=== PATIENT | male | born 2000 | race Caucasian/White ===

== ENCOUNTER 2019-01-03 04:35 | Day surgery (SDC) | payer OTHER ==
[~2019-01-03] VITALS: Ht 177.8 cm; Wt 86.4 kg
[2019-01-03 05:42] LABS: BASO % 0.3 % (0.0-1.0); EOS # 0.4 10^3/uL (0.0-0.50); EOS % 3.2 % (0.0-3.0); HEMATOCRIT 49.2 % (42.0-52.0); HEMOGLOBIN 16.4 g/dl (13.5-17.5); LYMPH % 17.6 % (24.0-44.0); MEAN CORPUSCULAR HGB CONC 33.3 g/dl (32.0-36.5); MEAN CORPUSCULAR VOLUME 89.9 fl (80.0-96.0); MONO # 0.8 10^3/uL (0.0-0.8); MONO % 6.9 % (0.0-5.0); NEUTROPHILS # 8.3 10^3/uL (1.8-7.7); NEUTROPHILS % 71.6 % (36.0-66.0); PLATELET COUNT, AUTOMATED 313 10^3/uL (150-450); RED BLOOD COUNT 5.47 10^6/uL (4.30-6.10); WHITE BLOOD COUNT 11.6 10^3/uL (4.0-10.0)
[2019-01-03 05:47] LABS: APPEARANCE, URINE CLEAR (CLEAR); BACTERIA, URINE AUTO NEGATIVE (NEGATIVE); BILIRUBIN, URINE AUTO NEGATIVE (NEGATIVE); BLOOD, URINE BLOOD NEGATIVE (NEGATIVE); COLOR, URINE YELLOW (YELLOW); GLUCOSE, URINE (UA) AUTO NEGATIVE (NEGATIVE); KETONE, URINE AUTO NEGATIVE (NEGATIVE); LEUKOCYTE ESTERASE, URINE AUTO NEGATIVE (NEGATIVE); MUCUS, URINE SMALL (NEGATIVE); NITRITE, URINE AUTO NEGATIVE (NEGATIVE); PROTEIN, URINE AUTO NEGATIVE (NEGATIVE); RBC, URINE AUTO 4 /HPF (0-3); SPECIFIC GRAVITY URINE AUTO 1.024 (1.002-1.035); SQUAMOUS EPITHELIAL CELL UR AU 0 /HPF (0-6); UROBILINOGEN, URINE AUTO 0.2 mg/dL (0.0-2.0); WBC, URINE AUTO 1 /HPF (0-3)
[2019-01-03] MEDS: GASTROGRAFIN SOLUTION 30ML PO SCH ×2 (05:58→06:06)
[2019-01-03 06:11] LABS: ALBUMIN 4.2 GM/DL (3.2-5.2); ALT/SGPT 17 U/L (12-78); BILIRUBIN,DIRECT 0.2 MG/DL (0.0-0.2); BILIRUBIN,TOTAL 0.8 MG/DL (0.2-1.0); BLOOD UREA NITROGEN 12 MG/DL (7-18); CALCIUM LEVEL 8.9 MG/DL (8.5-10.1); CARBON DIOXIDE LEVEL 28 MEQ/L (21-32); CHLORIDE LEVEL 107 MEQ/L (98-107); CREATININE FOR GFR 0.96 MG/DL (0.70-1.30); GLUCOSE, FASTING 90 MG/DL (70-100); LIPASE 94 U/L (73-393); POTASSIUM SERUM 4.3 MEQ/L (3.5-5.1); SODIUM LEVEL 141 MEQ/L (136-145); TOTAL PROTEIN 8.1 GM/DL (6.4-8.2)
[2019-01-03] MEDS ORDERED: NS 1,000 ML IV SCH (08:00)
[2019-01-03] MEDS ORDERED: PIPERACILLIN/TAZOBACTAM SOD 3.375 GM in D5W MINI-BAG PLUS 50 ML IV ONE (08:00)
--- NOTE | 2019-01-03 08:03 | REP ---
Clinical: Right lower quadrant pain. Technique: Axial noncontrast images from the lung bases to the pubic symphysis with coronal and sagittal re-formations. Findings: The retrocecal appendix is fluid-filled and dilated to 13 mm with appendicolith and surrounding periappendiceal inflammatory changes as well as adjacent reactive adenopathy. Findings are consistent with acute appendicitis. No associated bowel obstruction or free air to suggest perforation. No drainable collection or abscess. Remainder of the small large bowel is grossly unremarkable. Liver, spleen, pancreas, bilateral adrenal glands and kidneys are normal. The patient is status post cholecystectomy. Pelvis demonstrates normal bladder and age appropriate prostate/seminal vesicles. No ascites. No free air. Abdominal aorta without aneurysm. Musculoskeletal structures are intact. Impression: Findings consistent with acute appendicitis as described above. Electronically Signed by Terrance Davidson MD 01/03/2019 07:54 A
[2019-01-03] MEDS ORDERED: NICO21DI34 TD (08:12)
[2019-01-03] MEDS ORDERED: VITMTA PO (08:12)
[2019-01-03] MEDS ORDERED: ONDANSETRON 4MG/2ML VIAL (J2405) IV ONE (11:30)
[2019-01-03] MEDS ORDERED: MORPHINE 4 MG/ML 1ML VIAL/SYRINGE (J2270) IV PRN ×2 (11:30→15:45)
--- NOTE | 2019-01-03 13:04 | HPEPDOC ---
General Surgery H&P Date of Admission Jan 03, 2019 Attending Physician: JAYDEN POST MD History and Physical CHIEF COMPLAINT: Abdominal pain HISTORY OF PRESENT ILLNESS: Patient presented himself to the emergency room roughly about 3 AM early this morning. He reports he has been having some vague crampy abdominal pain yesterday morning that he attributed to possible constipation, gas pain. As the day progressed this progressed to be sharp though he was not having being any nausea vomiting or fever that time. About 1 AM in the morning he woke up with excruciating right-sided abdominal pain. He had a bout of nausea prior to that and vomiting. He denies diarrhea fevers or chills. This prompted him to go to the emergency room. In the ER he was evaluated with a CT scan of abdomen and pelvis was noted to have pain from an inflamed retrocecal appendix. ALLERGIES: Please see below. HOME MEDICATIONS: Please see below. PAST MEDICAL HISTORY: 1. Denies any chronic medical problems PAST SURGICAL HISTORY: 1. Laparoscopic cholecystectomy PERSONAL/SOCIAL HISTORY: Patient used to smoke 3/4 packs of cigarettes a day and chews tobacco. He tells me he stopped 2 days ago and is on a nicotine patch. Reports occasional alcohol intake. Denies any recreational drug use. REVIEW OF SYSTEMS: GENERAL: Denies chills, fatigue, fever, weight gain and weight loss. HEENT: Denies blurred vision and double vision. Denies ear symptoms. Denies hoarseness. NECK: Denies any neck pain. CARDIOVASCULAR: Denies chest pain and palpitations. MUSCULOSKELETAL: Denies arthralgias, back pain and thrombophlebitis. SKIN: Denies rash. NEUROLOGIC: Denies headache, stroke and transient ischemic attack. PSYCHIATRIC: Denies anxiety and depression. ENDOCRINE: Denies thyroid disease. HEMATOLOGY/ONCOLOGY: Denies any bleeding or clotting disorder. HEART: Denies any chest pains, palpitations, paroxysmal dyspnea, orthopnea. PULMONARY: Denies chronic cough, dyspnea and wheezing. GASTROINTESTINAL: Denies rectal bleeding, family history of colon cancer, constipation, diarrhea, dysphagia, heartburn and jaundice. GENITOURINARY: Denies dysuria, frequency, hematuria and nocturia. ENDOCRINE: Denies polydipsia, polyphagia, polyuria, heat or cold intolerance. INFECTIOUS: Denies any recent upper respiratory tract infection, UTI, need for use of antibiotics. NUTRITION: Reports good appetite. PHYSICAL EXAMINATION: VITAL SIGNS: Please see below. GENERAL APPEARANCE: Patient seen at bedside, appears comfortable. Awake, alert, oriented. HEENT: Normocephalic, atraumatic. [place] palpebral conjunctivae. Anicteric sclerae. Lips moist. CHEST: No chest wall abnormalities. Normal respiratory motion/effort. NECK: Supple. No thyromegaly. No lymphadenopathies. LUNGS: Lung sounds are clear to auscultation bilaterally. No wheezing appreci ated. HEART: No chest wall abnormalities. Heart rate and rhythm are regular with no murmurs. ABDOMEN: [Abdomen is mildly obese, soft, nondistended. Mild tenderness over the right lower quadrant area without any guarding. SKIN: Warm, moist. EXTREMITIES: Extremities have no deformities. No edema identified. NEUROLOGICAL: Awake, alert and oriented ANCILLARIES: . LABORATORY DATA: Please see below. MICROBIOLOGY: Please see below. IMAGING: CT scan abdomen and pelvis The retrocecal appendix is fluid-filled and dilated to 13 mm with appendicolith and surrounding periappendiceal inflammatory changes as well as adjacent reactive adenopathy. Findings are consistent with acute appendicitis. No associated bowel obstruction or free air to suggest perforation. No drainable collection or abscess. Remainder of the small large bowel is grossly unremarkable. IMPRESSION AND PLAN: Acute appendicitis. Patient appears to have some localized acute appendicitis is appendix is noted to be retrocecal. He has no severe signs of inflammatory response like fevers or chills. He does have some mild leukocytosis. On examination he has localized tenderness with a right lower quadrant area but no generalized tenderness. On CT he is appendix is enlarged, inflamed consistent with acute appendicitis. No free fluid or free air or significant phlegmon seen. He was aware of the diagnosis of acute appendicitis. I discussed with him options for treatment including nonsurgical and surgical treatment. 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 I discussed with the patient the details of the proposed procedure, the benefits of performing the procedure, the most common risks on doing the procedure. This may include risks for bleeding, infection, injury to nearby structures including bowel injury, vessel injury with laparoscopy, subsequent abscess formation which correlates with the degree of appendiceal inflammation as well as fluid collection.. I have given him a chance to ask questions, voice out concerns. Patient has agreed to proceed. He was given a dose of Zosyn in the ER. I'll continue just with Unasyn periope ratively as they should be adequate for antibiotic coverage. Vital Signs Vital Signs Date Time Temp Pulse Resp B/P (MAP) Pulse Ox O2 Delivery O2 Flow Rate FiO2 01/03/19 12:33 98.6 66 16 120/55 (76) 99 Room Air Laboratory Data Labs 24H Laboratory Tests 2 01/03/19 05:26: Immature Granulocyte % (Auto) 0.4, White Blood Count 11.6H, Red Blood Count 5.47, Hemoglobin 16.4, Hematocrit 49.2, Mean Corpuscular Volume 89.9, Mean Corpuscular Hemoglobin 30.0, Mean Corpuscular Hemoglobin Concent 33.3, Red Cell Distribution Width 12.4, Platelet Count 313, Neutrophils (%) (Auto) 71.6H, Lymphocytes (%) (Auto) 17.6L, Monocytes (%) (Auto) 6.9H, Eosinophils (%) (Auto) 3.2H, Basophils (%) (Auto) 0.3, Neutrophils # (Auto) 8.3H, Lymphocytes # (Auto) 2.0, Monocytes # (Auto) 0.8, Eosinophils # (Auto) 0.4, Basophils # (Auto) 0.0, Nucleated Red Blood Cells % (auto) 0.0 01/03/19 05:29: Urine Appearance CLEAR, Urine Color YELLOW, Urine pH 5.0, Urine Specific [place] 1.024, Urine Protein NEGATIVE, Urine Glucose (UA) NEGATIVE, Urine Ketones NEGATIVE, Urine Urobilinogen 0.2, Urine Bilirubin NEGATIVE, Urine Leukocyte Esterase NEGATIVE, Urine Blood NEGATIVE, Urine Nitrite NEGATIVE, Urine WBC (Auto) 1, Urine RBC (Auto) 4H, Urine Hyaline Casts (Auto) 0, Urine Bacteria (Auto) NEGATIVE, Urine Squamous Epithelial Cells 0, Urine Mucus (Auto) SMALL, Urine Sperm (Auto) , Anion Gap 6L, Calcium Level 8.9, Aspartate Amino Transf (AST/SGOT) 13, Alanine Aminotransferase (ALT/SGPT) 17, Alkaline Phosphatase 66, Total Bilirubin 0.8, Direct Bilirubin 0.2, Total Protein 8.1, Albumin 4.2, Albumin/Globulin Ratio 1.08, Lipase 94 CBC/BMP Laboratory Tests 01/03/19 05:26 Red Blood Count 5.47, Mean Corpuscular Volume 89.9, Mean Corpuscular Hemoglobin 30.0, Mean Corpuscular Hemoglobin Concent 33.3, Red Cell Distribution Width 12.4, Neutrophils (%) (Auto) 71.6 H, Lymphocytes (%) (Auto) 17.6 L, Monocytes (%) (Auto) 6.9 H, Eosinophils (%) (Auto) 3.2 H, Basophils (%) (Auto) 0.3, Neutrophils # (Auto) 8.3 H, Lymphocytes # (Auto) 2.0, Monocytes # (Auto) 0.8, Eosinophils # (Auto) 0.4, Basophils # (Auto) 0.0 01/03/19 05:29 Microbiology Microbiology 01/03/19 Urine Culture, Received Pending Home Medications Scheduled Multivitamins *[facility] STOCKED* (Thera M Plus *[facility] STOCKED*) 1 Tab Tab, 1 TAB PO DAILY, (Reported) Nicotine (Nicotine Step 1) 21 Mg/24 Hr Dis, 21 MG TD DAILY, (Reported) Allergies Coded Allergies: No Known Allergies (Unverified , 01/03/19) JAYDEN POST MD Jan 03, 2019 13:04
[2019-01-03] MEDS ORDERED: PROPOFOL 200 MG/20 ML VIAL As Ordered ONE (13:09)
[2019-01-03] MEDS ORDERED: LIDOCAINE 2% INJ 100 MG/5 ML SDV (FOR ANES.) As Ordered ONE (13:09)
[2019-01-03] MEDS ORDERED: KETOROLAC 60 MG/2 ML VIAL (J1885) As Ordered ONE (13:09)
[2019-01-03] MEDS ORDERED: ROCURONIUM BROMIDE 50 MG/5 ML VIAL As Ordered ONE (13:09)
[2019-01-03] MEDS ORDERED: ONDANSETRON 4MG/2ML VIAL (J2405) As Ordered ONE (13:09)
[2019-01-03] MEDS ORDERED: MIDAZOLAM INJ 2 MG/2 ML VIAL (J2250) As Ordered ONE (13:09)
[2019-01-03] MEDS ORDERED: dexameTHASONE 4 MG/ML 1ML VIAL (J1100) As Ordered ONE (13:09)
[2019-01-03] MEDS ORDERED: fentaNYL 100 MCG/2 ML INJECTION (J3010) As Ordered ONE (13:10)
[2019-01-03] MEDS ORDERED: KETAMINE HCL 200 MG/20 ML VIAL As Ordered ONE (13:10)
[2019-01-03] MEDS ORDERED: SUGAMMADEX SODIUM 500 MG/5 ML VIAL (BRIDION) As Ordered ONE (13:22)
[2019-01-03] MEDS ORDERED: BUPIVACAINE HCL 0.25% 30 ML VIAL As Ordered ONE (13:28)
[2019-01-03] MEDS ORDERED: LIDOCAINE 1% SDV INJ 30 ML VIAL As Ordered ONE (13:29)
[2019-01-03] MEDS: AMPICILLIN SOD/SULBACTAM SOD 3 GM in D5W MINI-BAG PLUS 100 ML IV SCH ×2 (14:50→21:27)
[2019-01-03] MEDS ORDERED: UNASYN 1.5 GM VIAL As Ordered ONE (14:51)
[2019-01-03] MEDS ORDERED: GLYCOPYRROLATE INJ 0.2 MG/ML 2 ML VIAL As Ordered ONE (14:58)
[2019-01-03] MEDS ORDERED: ONDANSETRON 4MG/2ML VIAL (J2405) IV PRN (15:45)
[2019-01-03] MEDS ORDERED: NORCO, ANEXSIA 5/325MG TABLET (HYDROcodone/ACETAMINOPHEN) PO PRN ×2 (15:45)
[2019-01-03] MEDS ORDERED: ACETAMINOPHEN TAB 650MG DOSE (2X325MG) PO PRN (15:45)
[2019-01-03] MEDS ORDERED: fentaNYL 100 MCG/2 ML INJECTION (J3010) IV PRN (16:00)
[2019-01-03] MEDS ORDERED: HYDROMORPHONE HCL 0.5 MG/ 0.5 ML SYRINGE (J1170 PER 1) IV PRN (16:00)
[2019-01-03] MEDS ORDERED: LR 1,000 ML IV SCH (16:00)
[2019-01-03] MEDS ORDERED: PERCOCET 5MG/325MG TAB PO PRN (16:00)
[2019-01-03 17:10] VITALS: BP 119/58
[2019-01-03] MEDS: LR 1,000 ML IV SCH (17:19)
[2019-01-03 17:45] VITALS: BP 106/52
[2019-01-03 18:45] VITALS: BP 118/59
[2019-01-03 19:45] VITALS: BP 128/68
[2019-01-03 20:45] VITALS: BP 116/55
[2019-01-03 21:45] VITALS: BP 111/59
[2019-01-04] VITALS: BP 120/56
[2019-01-04] MEDS: LR 1,000 ML IV SCH (01:36)
[2019-01-04] MEDS: AMPICILLIN SOD/SULBACTAM SOD 3 GM in D5W MINI-BAG PLUS 100 ML IV SCH ×2 (03:31→09:35)
[2019-01-04 04:00] VITALS: BP 114/53
[2019-01-04] MEDS: KETOROLAC 30 MG/ML VIAL (J1885) IV PRN ×2 (04:07→10:40)
[2019-01-04 07:48] LABS: BASO % 0.1 % (0.0-1.0); HEMATOCRIT 42.8 % (42.0-52.0); LYMPH # 1.7 10^3/uL (1.5-6.5); LYMPH % 10.2 % (24.0-44.0); MEAN CORPUSCULAR HEMOGLOBIN 30.1 pg (27.0-33.0); MEAN CORPUSCULAR HGB CONC 33.6 g/dl (32.0-36.5); MEAN CORPUSCULAR VOLUME 89.4 fl (80.0-96.0); MONO # 0.7 10^3/uL (0.0-0.8); MONO % 4.5 % (0.0-5.0); NEUTROPHILS # 13.7 10^3/uL (1.8-7.7); NEUTROPHILS % 84.8 % (36.0-66.0); PLATELET COUNT, AUTOMATED 321 10^3/uL (150-450); RED BLOOD COUNT 4.79 10^6/uL (4.30-6.10); WHITE BLOOD COUNT 16.1 10^3/uL (4.0-10.0)
[2019-01-04 07:50] VITALS: BP 119/62
[2019-01-04 07:54] LABS: HEMOGLOBIN 14.4 g/dl (13.5-17.5)
[2019-01-04 08:11] LABS: BLOOD UREA NITROGEN 12 MG/DL (7-18); CALCIUM LEVEL 8.7 MG/DL (8.5-10.1); CARBON DIOXIDE LEVEL 27 MEQ/L (21-32); CHLORIDE LEVEL 106 MEQ/L (98-107); CREATININE FOR GFR 0.87 MG/DL (0.70-1.30); GLUCOSE, FASTING 91 MG/DL (70-100); POTASSIUM SERUM 4.4 MEQ/L (3.5-5.1); SODIUM LEVEL 140 MEQ/L (136-145)
[2019-01-04] MEDS ORDERED: NICOTINE 21MG/24HR 1 EA TRANSDERMAL TD SCH (09:00)
[2019-01-04] MEDS ORDERED: AUGM875T28 PO (11:44)
[2019-01-04] MEDS ORDERED: NORCOTAB PO (11:44)
--- NOTE | 2019-01-05 06:57 | ROOPDOC ---
[facility] Report Of Operation Report of Operation DATE OF PROCEDURE: 01/03/19 PREPROCEDURE DIAGNOSES: Acute appendicitis. POSTPROCEDURE DIAGNOSES: Acute appendicitis, Retrocecal appendix. PROCEDURE: Laparoscopic appendectomy. SURGEON: Jayden Pepe MD ANESTHESIA: General anesthesia. ESTIMATED BLOOD LOSS: Approximately Five mL. COMPLICATIONS: None. 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 He is now brought to the [facility] for laparoscopic appendectomy. PROCEDURE NOTE: Minimal serious fluid in the Vel. Retrocecal appendix with second mesentery. Appendix is noted to be inflamed, second throughout its course but base appears healthy. No gross preparation noted. DESCRIPTION OF PROCEDURE: Patient has been given a dose of Zosyn 3.375 g IV on his presentation in the emergency room. He was given the next dose of Unasyn 3 g IV preoperatively (6 hours after the dose of Zosyn).Patient was brought to the operating room, placed supine on the table. Sequential compression device placed for DVT prophylaxis. General endotracheal anesthesia started. The abdomen prepped and draped in usual sterile fashion. After a surgical timeout, we began our surgery Entry into the abdomen done through an incision above the umbilicus. Veress needle inserted on a controlled fashion. Intra-abdominal placement confirmed with saline drop technique. CO2 insufflation started to a pressure of 15 mmHg. Using the same incision an 8 mm port was placed under direct vision of laparoscope. Insertion site was inspected for injury and none was found. He was placed on a Trendelenburg position the right side tilted to about 30 to allow for better visualization of the appendix. Two 5 mm working ports were placed at the suprapubic area and left lower quadrant area under direct vision. Operative findings: The appendix is noted inflamed and stuck in b/w the loop of small bowel and mesentery and the terminal ileum on the other side, There is fibrinous covering throughout the mid portion of appendix. Small amount of murky serous fluid in the gutter and pelvis The appendix was located, the adhered bowels and mesentery was widely dissected away from the appendix freeing up the appendix from the inflammatory adhesions using [place] instrument and suction irrigation. The Surrounding bowels retracted away from the appendix. This was grasped to pull the base of the appendix into view. The mesoappendix was divided using Harmonic scalpel down to the base. Two Vicryl Endoloops were placed to ligate the appendix at its base then divided with a Harmonic Scalpel the stump cauterized. Stump appears healthy. Appendix was then delivered into an Endo Catch bag. After re- insufflation the surgical site was inspected for hemostasis, the visualized fluid collections irrigated and suctioned off until clear return. Surrounding areas of the abdomen and inspected for fluid collections or signs of injury. A 10 flat AMINATA drain was left in place close to the abdomen initial stump for monitoring and for drainage of fluid irrigation. The abdomen was deflated. All ports removed. The umbilical fascial defect repaired with 0 Vicryl in a mattress fashion. All skin incisions closed with 4-0 Monocryl in a subcuticular fashion. Steri-Strips and gauze dressing used for wound coverage. Patient was promptly awake and extubated and brought to recovery room stable. All counts of sponges and instruments verified to be correct. JAYDEN PEPE MD Jan 05, 2019 06:57
== END 2019-01-04 13:30 | disposition home or self-care (01) ==
LOC: M ED 04:35 → M SDC 08:55 → M PED 17:15 → M SDC 01-04 13:30
PROVIDERS: ATTEND Surgery
DX: K35.890 Other acute appendicitis without perforation or gangrene (principal); Z87.891 Personal history of nicotine dependence
CPT/HCPCS: 36415; 44970; 74176; 80048; 80076; 81001; 83690; 85025; 87086; 88304; 96374; 96375; 96376; 99284; J1100; J1885; J2250; J2270; J2405; J2543; J3010; Q9963

== ENCOUNTER → 2019-07-30 | Outpatient (REF) | payer OTHER ==
[~2019-07-30] MED LIST: AUGM875T28 PO; HYDR-3715 PO; NICO21DI34 TD; VITMTA PO
== END ==
LOC: M SFHCLERA 14:59
PROVIDERS: ATTEND Nurse Practitioner Family
DX: J02.9 Acute pharyngitis, unspecified (principal)

== ENCOUNTER 2021-02-02 00:26 | Emergency (ER) | payer OTHER ==
[~2021-02-02] VITALS: Ht 167.6 cm; Wt 86.4 kg
[2021-02-02 00:27] VITALS: BP 141/83
[2021-02-02] MEDS ORDERED: LEXA1TAB2 PO (00:32)
[2021-02-02] MEDS ORDERED: ONDANSETRON 4 MG ORAL DISINTEGRATING TAB PO ONE (01:05)
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
== END 2021-02-02 01:44 | disposition home or self-care (01) ==
LOC: M ED 00:26
DX: S09.90XA Unspecified injury of head, initial encounter (principal); R11.0 Nausea; Y04.8XXA Assault by other bodily force, initial encounter; Y92.019 Unspecified place in single-family (private) house as the place of occurrence of the external cause; Y93.9 Activity, unspecified; Y99.9 Unspecified external cause status; F33.9 Major depressive disorder, recurrent, unspecified; Z79.899 Other long term (current) drug therapy
CPT/HCPCS: 70450; 99282; Q0162